=== PATIENT | female | born 1965 | race Caucasian/White ===

== ENCOUNTER 2022-08-16 11:16 | Inpatient (IN) ==
[2022-08-16] MEDS ORDERED: ONDANSETRON INJ 2 MG/ML 2 ML VIAL IV STA (12:24)
[2022-08-16] MEDS ORDERED: SODIUM CHLORIDE 0.9% 1000ML 1,000 ML IV ONE ×2 (12:24→13:40)
--- NOTE | 2022-08-16 12:32 | Emergency Department Note ---
Impression & Plan Dysphagia, DELFIN (acute kidney injury), DKA (diabetic ketoacidosis), Abnormal EKG ED Provider Note NAME: REKHA KIMBROUGH AGE: 57 SEX: F : 1965 ARRIVES VIA: Walk-In INFORMANT: Patient, ED PROVIDER(S): Balwinder Chávez DO CHIEF COMPLAINT: Difficulty swallowing HPI: The patient is a 57-year female who presented to the emergency department for an evaluation of difficulty swallowing. The patient had symptoms for approximate 1 week. The patient states that she is okay swallowing liquids but when she tries to swallow solids she has significant problems. The patient has noticed that her blood sugar has been rising. She is unable to eat. She is able to drink liquids. She has no history of tobacco use. She has no history of an upper endoscopy. She has no history of GERD or reflux. She has had no chest pain or difficulty breathing. She denies have any swelling in her legs. The patient states that she has been compliant with her outpatient medications otherwise. Patient states that she may be dehydrated because of decreased p.o. She also sat in the waiting room at [facility] for 4 hours and left be cause she could not see anybody. This occurred on Sunday. ROS: See above HPI for pertinent positives & negatives. A total of 10 systems reviewed and were otherwise negative. PAST MEDICAL HISTORY: See Below PAST SURGICAL HISTORY: See Below FAMILY HISTORY: See Below SOCIAL HISTORY: See Below HOME MEDICATIONS: See Below ALLERGIES: See Below VITALS: See Below PHYSICAL EXAMINATION: GENERAL: Patient is awake alert in no acute distress patient is resting comfortably and showing no signs of anxiety EYES: The conjunctivae are clear. The pupils are round and reactive. EARS, NOSE, MOUTH AND THROAT: The nose is without any evidence of any deformity. NECK: The neck is nontender and supple. RESPIRATORY: Normal respiratory effort is noted there is no evidence of wheezing rhonchi or rales CARDIOVASCULAR: Regular rate and rhythm noted there no murmurs rubs or gallops normal S1 normal S2. GASTROINTESTINAL: The abdomen is soft. Abdomen is nontender. MUSCULOSKELETAL/EXTREMITIES: There is no evidence of gross deformity full range of motion is noted in the hips and shoulders. SKIN: There is no obvious evidence of any rash. There are no petechiae, pallor or cyanosis noted. NEUROLOGIC: Patient is awake alert and oriented x3 MEDICAL DECISION MAKING: Patient is a 57-year-old female who presented to the emergency department for an evaluation of difficulty swallowing. The patient has a history of diabetes. Because of her difficulty swallowing she has been unable to eat as normally. Her difficulty swallowing appears to be some degree of mechanical difficulty swallowing. I would wonder if the patient requires an upper endoscopy to further evaluate cause of the symptoms. She was treated with IV fluids and IV insulin in the emergency department. If she is in DKA it appears to be quite early. She does have an anion gap but she is not acidotic at this time. Because the patient's presentation and findings I [facility] have agreed to evaluate the patient in the emergency department for further management. Triage Nursing notes reviewed. Prior medical records reviewed Vital Signs: reviewed and remarkable for no significant abnormalities Differential diagnosis: Cardiac ischemia, aortic dissection, pulmonary embolism, pneumothorax, pneumonia, pericarditis, myocarditis, esophageal rupture, GERD, cholecystitis, pancreatitis, musculoskeletal, as well as other pathologies. ER treatment provided: See below Diagnostics interpreted by me: ECG: EKG was obtained in the emergency department. My interpretation is sinus rhythm at 95 bpm. There is no ectopy noted. Inferior and low lateral ST depressions with T wave abnormalities were noted. This was compared to a tracing from July 12, 2021. Ischemic changes are new compared to the previous tracing. Cardiac Monitoring: An order was placed for continuous cardiac monitoring. The monitor shows a rate of 80 bpm with sinus rhythm. Laboratory studies: As stated above and show below. Imaging studies: See below Consultation(s): I discussed case with Veda who [facility] none Past Med/Surg History Medical History (Updated 08/16/22 @ 19:32 by Balwinder Chávez DO) HLD (hyperlipidemia) Hypertension Hypothyroid Insulin dependent diabetes mellitus Social History Smoking Status: Never smoker Second Hand Exposure: Yes ( smokes); Tobacco Cessation Education Requested by Patient: No Hx Alcohol Use: No Hx Substance Use: No Preferred Language: Spanish Communication Ability: Effective Agronomy Professor Required: No Beliefs That Will Affect Care: None Current Living Situation: Spouse Other Information That Helps Us Care for You: No Feels Safe at Home: Yes Safety Concerns: Feels Safe At This Time Assistive Devices: None Allergies Allergies Allergy/AdvReac Type Severity Reaction Status Date / Time No Known Drug Allergies Allergy nkda Verified 08/16/22 15:05 Home Meds Home Medications Medication Instructions Recorded Confirmed atorvastatin 10 mg tablet 10 mg PO DAILY 08/16/22 08/16/22 dulaglutide 0.75 mg/0.5 mL 0.75 mg subcut WE 08/16/22 08/16/22 subcutaneous pen injector (Trulicity) insulin aspart U-100 100 unit/mL 7 unit subcut AC 08/16/22 08/16/22 (3 mL) subcutaneous pen (Novolog Flexpen U-100 Insulin aspart) insulin glargine 100 unit/mL 15 unit subcut DAILY 08/16/22 08/16/22 subcutaneous solution (Lantus U-100 Insulin) levothyroxine 112 mcg tablet 112 mcg PO DAILY 08/16/22 08/16/22 lisinopril 10 mg tablet 10 mg PO DAILY 08/16/22 08/16/22 Results & Data (ED) Vital Signs Vital Signs - 24 hr 08/16/22 11:21 08/16/22 12:06 08/16/22 13:00 Temperature 36.5 C Temperature Source Temporal Artery Scan Pulse Rate 105 H Pulse Rate [Apical] 96 H Pulse Rate from SpO2 Sensor Pulse Rhythm Regular Pulse Strength Normal Respiratory Rate 20 17 Respiratory Effort / Characteristics Non-Labored Spontaneous Respiratory Depth Normal Respiratory Pattern Regular Blood Pressure 126/79 120/77 Blood Pressure [Right Arm] 131/96 Blood Pressure Mean 94 91 Blood Pressure Mean [Right Arm] 107 Blood Pressure Position Sitting Pulse Oximetry 98 100 Oxygen Delivery Method Room Air Room Air Sepsis Recent Fever Within 48 Hours No Sepsis New/Unexplained Change in Mental Status N/A Sepsis Action Taken by Nursing No Action Required 08/16/22 13:00 08/16/22 13:30 08/16/22 13:30 Temperature Temperature Source Pulse Rate 83 84 Pulse Rate [Apical] Pulse Rate from SpO2 Sensor 84 85 Pulse Rhythm Pulse Strength Respiratory Rate 23 19 Respiratory Effort / Characteristics Respiratory Depth Respiratory Pattern Blood Pressure 118/77 Blood Pressure [Right Arm] Blood Pressure Mean 90 Blood Pressure Mean [Right Arm] Blood Pressure Position Pulse Oximetry 99 100 Oxygen Delivery Method Room Air Room Air Sepsis Recent Fever Within 48 Hours Sepsis New/Unexplained Change in Mental Status Sepsis Action Taken by Nursing 08/16/22 14:00 08/16/22 14:00 Temperature Temperature Source Pulse Rate 83 Pulse Rate [Apical] Pulse Rate from SpO2 Sensor 83 Pulse Rhythm Pulse Strength Respiratory Rate 18 Respiratory Effort / Characteristics Respiratory Depth Respiratory Pattern Blood Pressure 115/77 Blood Pressure [Right Arm] Blood Pressure Mean 89 Blood Pressure Mean [Right Arm] Blood Pressure Position Pulse Oximetry 100 Oxygen Delivery Method Room Air Sepsis Recent Fever Within 48 Hours Sepsis New/Unexplained Change in Mental Status Sepsis Action Taken by Skilled Nursing Medications Current Medication List: was personally reviewed by me Laboratory Data Attestation: I reviewed the patient's lab results. Result diagrams: 08/16/22 12:15 08/17/22 07:30 Lab Results 08/16/22 08/16/22 08/16/22 Range/Units 12:15 12:15 12:15 WBC 15.04 H (4.8-10.8) K/ul RBC 5.51 H (3.93-5.22) M/uL Hgb 13.1 (12.0-16.0) g/dl Hct 41.0 (34.1-44.9) % MCV 74.4 L (80.0-100.0) fL MCH 23.8 L (25.0-34.0) pg MCHC 32.0 (32.0-36.0) g/dL RDW Std Deviation 44.0 (36.4-46.3) fL RDW Coeff of Estefany 17.1 H (11.5-14.5) % Plt Count 624 H (130-400) K/uL MPV 8.6 L (9.4-12.3) fL Immature Gran % (Auto) 0.7 % Neut % (Auto) 71.4 % Lymph % (Auto) 19.9 % [place] % (Auto) 6.8 % Eos % (Auto) 0.5 % Baso % (Auto) 0.7 % Neut # (Auto) 10.72 H (1.4-6.5) K/uL Lymph # (Auto) 2.99 (1.2-3.4) K/uL [place] # (Auto) 1.03 H (0.24-0.82) K/uL Eos # (Auto) 0.08 (0-0.50) K/uL Baso # (Auto) 0.11 (0-0.2) K/uL Immature Gran # (Auto) 0.11 H (0.00-0.02) K/uL VBG pH (7.36-7.41) VBG pCO2 (38-50) mmHg VBG pO2 mmHg VBG HCO3 mmol/L VBG O2 Saturation % VBG Base Excess mEq/L Sodium 126 L (136-145) mmol/L Potassium 3.8 (3.5-5.1) mmol/L Chloride 90 L (98-107) mmol/L Carbon Dioxide 16 L (21-32) mmol/L Anion Gap 20 H (3-11) BUN 39 H (6-23) mg/dl Creatinine 1.42 H (0.6-1.2) mg/dl Est Cr Clr Drug Dosing 37.3 ml/min Est GFR ( Amer) 47.1 ml/min Est GFR (Non-Af Amer) 40.6 ml/min BUN/Creatinine Ratio 27.5 H (10-20) Glucose 304 H* (70-99(Fasting)) mg/dl Calcium 9.6 (8.5-10.1) mg/dl Total Bilirubin 0.5 (0.2-1.0) mg/dl AST 44 H (13-39) U/L ALT 23 (7-52) U/L Alkaline Phosphatase 282 H (34-104) U/L Troponin I High Sens 5.2 (0-14) pg/ml Total Protein 8.7 H (6.0-8.3) gm/dl Albumin 4.0 (3.4-5.0) gm/dl Globulin 4.7 H (2.5-4.0) gm/dl Albumin/Globulin Ratio 0.9 (0.9-2) SARS-CoV-2, RNA, NAAT (NEGATIVE) 08/16/22 08/16/22 Range/Units 12:40 12:50 WBC (4.8-10.8) K/ul RBC (3.93-5.22) M/uL Hgb (12.0-16.0) g/dl Hct (34.1-44.9) % MCV (80.0-100.0) fL MCH (25.0-34.0) pg MCHC (32.0-36.0) g/dL RDW Std Deviation (36.4-46.3) fL RDW Coeff of Estefany (11.5-14.5) % Plt Count (130-400) K/uL MPV (9.4-12.3) fL Immature Gran % (Auto) % Neut % (Auto) % Lymph % (Auto) % [place] % (Auto) % Eos % (Auto) % Baso % (Auto) % Neut # (Auto) (1.4-6.5) K/uL Lymph # (Auto) (1.2-3.4) K/uL [place] # (Auto) (0.24-0.82) K/uL Eos # (Auto) (0-0.50) K/uL Baso # (Auto) (0-0.2) K/uL Immature Gran # (Auto) (0.00-0.02) K/uL VBG pH 7.38 (7.36-7.41) VBG pCO2 34 L (38-50) mmHg VBG pO2 24 mmHg VBG HCO3 20 mmol/L VBG O2 Saturation < 60.0 % VBG Base Excess -4.2 mEq/L Sodium (136-145) mmol/L Potassium (3.5-5.1) mmol/L Chloride (98-107) mmol/L Carbon Dioxide (21-32) mmol/L Anion Gap (3-11) BUN (6-23) mg/dl Creatinine (0.6-1.2) mg/dl Est Cr Clr Drug Dosing ml/min Est GFR ( Amer) ml/min Est GFR (Non-Af Amer) ml/min BUN/Creatinine Ratio (10-20) Glucose (70-99(Fasting)) mg/dl Calcium (8.5-10.1) mg/dl Total Bilirubin (0.2-1.0) mg/dl AST (13-39) U/L ALT (7-52) U/L Alkaline Phosphatase (34-104) U/L Troponin I High Sens (0-14) pg/ml Total Protein (6.0-8.3) gm/dl Albumin (3.4-5.0) gm/dl Globulin (2.5-4.0) gm/dl Albumin/Globulin Ratio (0.9-2) SARS-CoV-2, RNA, NAAT NEGATIVE (NEGATIVE) Administered Medications Insulin Aspart (Insulin Aspart Per Unit) 0 units SC ACHS LE Stop: 09/15/22 17:29 Last Admin: 08/17/22 08:41 Dose: Not Given Documented By: [id number] Co-signed By: ANDREA Admin: 08/16/22 21:58 Dose: Not Given Documented By: NIKO Co-signed By: JESÚS Admin: 08/16/22 18:49 Dose: Not Given Documented By: LARRY Discontinued Medications Sodium Chloride (Nss 1000ml) 1,000 mls @ 999 mls/hr IV .Q1H1M ONE Stop: 08/16/22 13:24 Last Infusion: 08/16/22 13:37 Dose: 0 mls/hr Documented By: Admin: 08/16/22 12:36 Dose: 999 mls/hr Documented By: YANDY Sodium Chloride (Nss 1000ml) 1,000 mls @ 999 mls/hr IV .Q1H1M ONE Stop: 08/16/22 14:40 Last Infusion: 08/16/22 15:30 Dose: 0 mls/hr Documented By: Admin: 08/16/22 14:25 Dose: 999 mls/hr Documented By: ERLINDA Lactated Ringer's (Lr) 1,000 mls @ 75 mls/hr IV .[id number] LE Stop: 08/17/22 04:39 Last Infusion: 08/17/22 07:32 Dose: 0 mls/hr Documented By: [id number] Admin: 08/16/22 18:00 Dose: 75 mls/hr Documented By: LARRY Insulin Human Regular (Novolin-R Insulin Per Unit Charge) 6 units IV NOW STA Stop: 08/16/22 13:41 Last Admin: 08/16/22 14:25 Dose: 6 units Documented By: ERLINDA Co-signed By: KENJI Metoclopramide HCl (Metoclopramide Hcl Inj 5 Mg/Ml 2 Ml Vial) 5 mg IV BID LE Stop: 08/17/22 09:01 Last Admin: 08/17/22 08:35 Dose: 5 mg Documented By: [id number] Admin: 08/16/22 20:39 Dose: 5 mg Documented By: NIKO Ondansetron HCl (Ondansetron Inj 2 Mg/Ml 2 Ml Vial) 4 mg IV NOW STA Stop: 08/16/22 12:25 Last Admin: 08/16/22 12:36 Dose: 4 mg Documented By: YANDY Imaging Data Radiologist's Impression: Chest X-Ray 08/16/22 12:24 XR chest 1V portable CLINICAL HISTORY: dysphagia TECHNIQUE: Single frontal radiograph of the chest was obtained. Comparison: None available at the time of this dictation. FINDINGS: No lines and tubes are seen. The cardiomediastinal silhouette is normal. The lungs are clear. No evidence of pleural effusion or pneumothorax. IMPRESSION: No acute chest disease. ACT 112: Negative or not required by law. Electronically signed by: Chang Thomas M.D. 08/16/2022 1:03 PM Discharge Plan Visit Data Chief Complaint: Illness Stated Complaint: UNABLE TO EAT FOR 7 DAYS ED Provider: Balwinder Chávez Discharge Problem: Dysphagia, DELFIN (acute kidney injury), DKA (diabetic ketoacidosis), Abnormal EKG Patient Disposition: Admitted As Inpatient Discharge Instructions Interventions: ED Discharge Assessment Last Done: 08/16/22 15:56 : Dysphagia Qualifiers: Dysphagia type: unspecified Qualified Code(s): R13.10 - Dysphagia, unspecified DKA (diabetic ketoacidosis) Qualifiers: Diabetes mellitus type: type 1 Diabetes mellitus complication detail: without coma Qualified Code(s): E10.10 - Type 1 diabetes mellitus with ketoacidosis without coma
[2022-08-16 12:43] LABS: Basophils # (auto) 0.11 K/uL (0-0.2); Basophils % (auto) 0.7 %; Eosinophils # (auto) 0.08 K/uL (0-0.50); Eosinophils % (auto) 0.5 %; Hemoglobin 13.1 g/dl (12.0-16.0); Immature Granulocytes # (auto) 0.11 K/uL (0.00-0.02); Immature Granulocytes % (auto) 0.7 %; Lymphocytes # (auto) 2.99 K/uL (1.2-3.4); Lymphocytes % (auto) 19.9 %; Mean Corpuscular Hemoglobin 23.8 pg (25.0-34.0); Mean Corpuscular Volume 74.4 fL (80.0-100.0); Mean Platelet Volume 8.6 fL (9.4-12.3); Monocytes # (auto) 1.03 K/uL (0.24-0.82); Monocytes % (auto) 6.8 %; Neutrophils # (auto) 10.72 K/uL (1.4-6.5); Neutrophils % (auto) 71.4 %; Platelet Count 624 K/uL (130-400); RDW Coefficient of Variation 17.1 % (11.5-14.5); Red Blood Count 5.51 M/uL (3.93-5.22); White Blood Count 15.04 K/ul (4.8-10.8)
[2022-08-16 12:50] LABS: Base Excess VBG -4.2 mEq/L; HCO3 VBG 20 mmol/L; Oxygen Saturation VBG < 60.0 %; PCO2 VBG 34 mmHg (38-50); PO2 VBG 24 mmHg; pH VBG 7.38 (7.36-7.41)
--- NOTE | 2022-08-16 13:04 | XRay Report ---
XR chest 1V portable CLINICAL HISTORY: dysphagia TECHNIQUE: Single frontal radiograph of the chest was obtained. Comparison: None available at the time of this dictation. FINDINGS: No lines and tubes are seen. The cardiomediastinal silhouette is normal. The lungs are clear. No evid ence of pleural effusion or pneumothorax. IMPRESSION: No acute chest disease. ACT 112: Negative or not required by law. Electronically signed by: Chang Thomas M.D. 08/16/2022 1:03 PM
[2022-08-16 13:38] LABS: Albumin Globulin Ratio 0.9 (0.9-2); BUN Creatinine Ratio 27.5 (10-20); Bilirubin,Total 0.5 mg/dl (0.2-1.0); Calcium 9.6 mg/dl (8.5-10.1); Creatinine Clr Calc Pharmacy 37.3 ml/min; Est GFR (African American) 47.1 ml/min; Est GFR (Non-African American) 40.6 ml/min; Globulin 4.7 gm/dl (2.5-4.0); Potassium 3.8 mmol/L (3.5-5.1); Total Protein 8.7 gm/dl (6.0-8.3)
[2022-08-16] MEDS ORDERED: NovoLIN-R INSULIN PER UNIT CHARGE IV STA (13:40)
--- NOTE | 2022-08-16 14:08 | History & Physical Report ---
Date of Service August 16, 2022 Assessment & Plan (1) Dysphagia: Plan: - Admit to med surg with tele - Concern for possible food bolus impaction with inability to swallow vs gastroparesis, however denies complaints of nausea or vomiting. - GI consulted - discussed with ALVARADO canceling and cutting control clerk, will make NPO at midnight, and plan for EGD tomorrow morning, give dose of Reglan 5 mg IV BID x 2 doses, no barium swallow at this time - Liver u/s with elevated alk phosphate compared to previous lab work in April - Continue LR at 75ml/hr until tomorrow morning for hydration and DELFIN - WBC 15 k, likely inflammatory, monitor, afebrile, no recent viral sx (2) Insulin dependent diabetes mellitus: Plan: - ISS with Accu-Cheks ACHS - Glucose of 304 on admission, trending BMPs, ABGs - Anion gap of 20, CO2 34 - Last A1c was on 05/05 = 12.70, recheck with am labs - Outpatient regimen includes insulin glargine 15 units daily, NovoLog ACHS, and Trulicity 0.75 mg/week. Has not been on metformin 1000 mg BID for the past 3 months - Consult glycemic pharmacy and community educator - pt has been following with endocrinology as an outpatient and last seen in April 2022 (3) DELFIN (acute kidney injury): Plan: -Creatinine baseline of 0.8-0.9, currently 1.42 on admission -1L NSS received in the ER, continue with fluid resuscitation -BMP check at 1999 (4) Hypertension: Plan: - EKG shows some changes compared to previous, T wave inversions in inferolateral leads, negative troponin, will check x 1 more set with next labwork at 1999. No cardiac complaints, no chest pain or shortness of breath. - Hold lisinopril due to DELFIN with creatinine of 1.4 - Will monitor blood pressure without it (5) Hypothyroid: Plan: - Will check TSH with am labs - Continue levothyroxine 112 mcg daily (6) HLD (hyperlipidemia): Plan: -Continue statin therapy DVT ppx: - teds, scds, ambulatory CODE: Full code - discussed with pt at bedside Dispo: From home, likely to remain in the hospital x 1-2 days History of Present Illness Chief Complaint: Dysphagia, abdominal complaints Primary Care Provider: Daya Martinez MD This is a 57-year-old female with PMHx of DM type II, hypothyroidism, anemia, HTN, oral thrush who presents to the ER for complaints of abdominal pain, nausea, vomiting and difficulty swallowing specifically with solids for several days. She was in the ER at [facility] on 08/14 however left without being seen due to prolonged wait time. Pt notes that approximately 1 week ago she acutely noticed that her swallowing was becoming difficult. She has not been able to tolerate more than liquids and soups with broth, not larger peices of food. The ability to tolerate food has progressed and worsened over the course of the week as well. She feels like her energy level is very low. Pt denies nause or vomiting, just feels like she cant get food down her throat. She admits to loosing a little weight within the ue to inability of not being able to eat. She denies anything like this ever happened before. Denies recent viral illnesses. She has been taking her insulin as directed, Lantus 15 U HS and Novolog from 10-15 U depending on whatever her numbers are. She is not taking metoformin. Novolog 6 units given at bedside in the ER and BG check was 69. [place] juice given at bedside. Allergies Allergy/AdvReac Type Severity Reaction Status Date / Time No Known Drug Allergies Allergy nkda Verified 08/16/22 15:05 Home Medications Medication Instructions Recorded Confirmed Type atorvastatin 10 mg tablet 10 mg PO DAILY 08/16/22 08/16/22 History dulaglutide 0.75 mg/0.5 mL 0.75 mg subcut WE 08/16/22 08/16/22 History subcutaneous pen injector (Trulicity) insulin aspart U-100 100 unit/mL 7 unit subcut AC 08/16/22 08/16/22 History (3 mL) subcutaneous pen (Novolog Flexpen U-100 Insulin aspart) insulin glargine 100 unit/mL 15 unit subcut DAILY 08/16/22 08/16/22 History subcutaneous solution (Lantus U-100 Insulin) levothyroxine 112 mcg tablet 112 mcg PO DAILY 08/16/22 08/16/22 History lisinopril 10 mg tablet 10 mg PO DAILY 08/16/22 08/16/22 History Past Med/Surg History Medical History (Updated 11/02/22 @ 15:26 by Leisa Min PA-C) HLD (hyperlipidemia) Hypertension Hypothyroid Insulin dependent diabetes mellitus Social History Smoking Status: Never smoker Feels Safe at Home: Yes Review of Systems Review of Systems: Constitutional: No fever, sweats or chills, + generalized fatigue Eyes: No diplopia, no worsening or blurred vision ENT: normal hearing, + as per HPI with trouble swallowing Respiratory: No cough, sputum, dyspnea at rest or on exertion Cardiovascular: No chest pain, tightness or palpitations Abdomen: No pain, nausea, vomiting, diarrhea or constipation : no dysuria or hematuria Musculoskeletal: No joint pain, calf pain, swelling Neurologic: No weakness, numbness/tingling, or balance problems Psychiatric: No anxiety or depression Skin: No rash or itch Physical Exam Physical Exam: General: awake, alert, no apparent distress, + thin with BMI of 20.9 Head: Normocephalic, atraumatic ENT: PERRL, EOMI, no pharyngeal exudate, mucous membranes moist Chest: Clear to auscultation, on room air, no adventitious breath sounds Cardiac: Regular rate and rhythm, no murmur, no JVD, normal peripheral pulses, good capillary refill Abdominal: NABS x 4 quadrants, soft, nondistended, nontender to palpation, no rebound or guarding Extremities: Normal inspection, no peripheral edema or erythema, calfs nontender to palpation Psych: Normal mood and affect Neuro: AAO x 3, strength intact bilaterally and rated 5/5, no motor deficits, speech is clear, no peripheral sensory deficits Results & Data Results & Data ([facility]) Vital Signs (Past 12 Hours) Vital Signs Temp Pulse Pulse Resp BP BP Pulse Ox 08/16/22 13:00 83 23 99 08/16/22 13:00 120/77 08/16/22 12:06 96 H 17 131/96 100 08/16/22 11:21 36.5 C 105 H 20 126/79 98 O2 Del Method 08/16/22 13:00 Room Air 08/16/22 13:00 08/16/22 12:06 Room Air 08/16/22 11:21 Room Air Laboratory Results 08/16/22 08/16/22 08/16/22 12:50 12:40 12:15 WBC RBC Hgb Hct MCV MCH MCHC RDW Std Deviation RDW Coeff of Estefany Plt Count MPV Immature Gran % (Auto) Neut % (Auto) Lymph % (Auto) Norton % (Auto) Eos % (Auto) Baso % (Auto) Neut # (Auto) Lymph # (Auto) [place] # (Auto) Eos # (Auto) Baso # (Auto) Immature Gran # (Auto) VBG pH 7.38 VBG pCO2 34 L VBG pO2 24 VBG HCO3 20 VBG O2 Saturation < 60.0 VBG Base Excess -4.2 Sodium Potassium Chloride Carbon Dioxide Anion Gap BUN Creatinine Est Cr Clr Drug Dosing Est GFR ( Amer) Est GFR (Non-Af Amer) BUN/Creatinine Ratio Glucose Calcium Total Bilirubin AST ALT Alkaline Phosphatase Troponin I High Sens 5.2 Total Protein Albumin Globulin Albumin/Globulin Ratio SARS-CoV-2, RNA, NAAT NEGATIVE 08/16/22 08/16/22 12:15 12:15 WBC 15.04 H RBC 5.51 H Hgb 13.1 Hct 41.0 MCV 74.4 L MCH 23.8 L MCHC 32.0 RDW Std Deviation 44.0 RDW Coeff of Estefany 17.1 H Plt Count 624 H MPV 8.6 L Immature Gran % (Auto) 0.7 Neut % (Auto) 71.4 Lymph % (Auto) 19.9 Norton % (Auto) 6.8 Eos % (Auto) 0.5 Baso % (Auto) 0.7 Neut # (Auto) 10.72 H Lymph # (Auto) 2.99 Norton # (Auto) 1.03 H Eos # (Auto) 0.08 Baso # (Auto) 0.11 Immature Gran # (Auto) 0.11 H VBG pH VBG pCO2 VBG pO2 VBG HCO3 VBG O2 Saturation VBG Base Excess Sodium 126 L Potassium 3.8 Chloride 90 L Carbon Dioxide 16 L Anion Gap 20 H BUN 39 H Creatinine 1.42 H Est Cr Clr Drug Dosing 37.3 Est GFR ( Amer) 47.1 Est GFR (Non-Af Amer) 40.6 BUN/Creatinine Ratio 27.5 H Glucose 304 H* Calcium 9.6 Total Bilirubin 0.5 AST 44 H ALT 23 Alkaline Phosphatase 282 H Troponin I High Sens Total Protein 8.7 H Albumin 4.0 Globulin 4.7 H Albumin/Globulin Ratio 0.9 SARS-CoV-2, RNA, NAAT Diagnostic Findings Chest X-Ray 08/16/22 12:24 XR chest 1V portable CLINICAL HISTORY: dysphagia TECHNIQUE: Single frontal radiograph of the chest was obtained. Comparison: None available at the time of this dictation. FINDINGS: No lines and tubes are seen. The cardiomediastinal silhouette is normal. The lungs are clear. No evidence of pleural effusion or pneumothorax. IMPRESSION: No acute chest disease. ACT 112: Negative or not required by law. Electronically signed by: Chang Thomas M.D. 08/16/2022 1:03 PM ECG Additional Comments: 16-AUG-2022 12:16:46 [facility]-EDSTAT ROUTINE RETRIEVAL Sinus rhythm Possible Left atrial enlargement ST & T wave abnormality, consider inferior ischemia ST & T wave abnormality, consider anterolateral ischemia Abnormal ECG No previous ECGs available Confirmed by Thomas Sheridan ([id number]) on 08/16/2022 2:12:40 PM 25mm/s10mm/[id number] 241CID: [id number] by: REFERRED SELF Confirmed By: Thomas Cedillo. rate 95 BPM TN interval 108 ms QRS duration 74 ms QT/QTc 350/439 ms Code Status & VTE Plan Code Status Full code - discussed with pt and i Supervising Physician Co-Signing Physician Notes Patient seen and examined. Agree with above documentation by Leisa Min PA-C. Patient is a 57-year-old female with past medical history of insulin-dependent type 2 diabetes mellitus; diagnosed 5 years ago, hypothyroidism, hypertension, hyperlipidemia presents with 1 week history of dysphagia. Patient reports that she has difficulty swallowing solid which has progressively worsened over the course of the week. She denies any pain on swallowing; is able to swallow liquids well. She denies any fever, chills, nausea, vomiting, abdominal pain or urinary symptoms. Her last bowel movement was in the ED. On presentation to the ED, she was afebrile, normotensive and saturating well in room air. CBC was remarkable for leukocytosis. BMP revealed NAGMA, DELFIN (remote creatinine from 07/05 is 0.9). Her blood glucose was elevated to 300s. On examination; Generalalert oriented x3 CVSS1-S2, no murmur Chestnormal vesicular breath sound Abdomensoft nontender, bowel sound present. Oral cavity examined; no thrush; moist mucous membrane. Neurogrossly intact Assessment/plan Dysphagia: With solids; not with liquids. No history of recent weight loss. We will get GIs input; (barium swallow versus endoscopy) DELFIN-received 1 L of fluid in ED. Continue on LR at 75 cc/h. Hold lisinopril. Follow-up BMP in evening and tomorrow a.m. Elevated ALPobtain right upper quadrant ultrasound Abnormal EKG, she has T wave inversion in inferolateral leads and non ST changes. Her initial troponin is negative.; No chest pain. We will get another troponin. Repeat EKG in AM. Type 2 diabetes mellitusstarted on Lantus and NovoLog. Pharmacy glycemic consult. staff educator. A1c in April was 12.7.
--- NOTE | 2022-08-16 14:12 | Electrocardiogram Report ---
Test Reason : Blood Pressure : / mmHG Vent. Rate : 095 BPM Atrial Rate : 095 BPM P-R Int : 108 ms QRS Dur : 074 ms QT Int : 350 ms P-R-T Axes : 069 060 -78 degrees QTc Int : 439 ms Sinus rhythm Possible Left atrial enlargement Abnormal ECG No previous ECGs available Confirmed by Thomas Sheridan ([id number]) on 08/16/2022 2:12:40 PM Referred By: REFERRED SELF Confirmed By:Ricardo Sheridan
--- NOTE | 2022-08-16 16:28 | Ultrasound Report ---
US liver CLINICAL HISTORY: elevated LFTs, dysphagia COMPARISON STUDY: No previous studies for comparison. FINDINGS: Liver is sonographically normal. There is no biliary ductal dilatation. Common bile duct me asures 4 mm in caliber. There are no gallstones. There is no gallbladder wall thickening. Pancreatic body is normal. Head and tail are partially obscured. There is no right hydronephrosis. Suspected ext rarenal pelvis. IMPRESSION: 1. No significant abnormality within the right upper quadrant by sonography. 2. Partially obscured pancreas. ACT 112: Negative or not required by law. Electronically signed by: Lior Keller M.D. 08/16/2022 4:27 PM
[2022-08-16] MEDS ORDERED: GLUCAGON FOR INJ 1 MG VIAL SQ PRN ×3 (16:40→17:46)
[2022-08-16] MEDS ORDERED: CARBOHYDRATES FOR HYPOGLYCEMIA PO PRN ×3 (16:40→17:46)
[2022-08-16] MEDS ORDERED: DEXTROSE 50% 50 ML SYRINGE IV PRN ×3 (16:40→17:46)
[2022-08-16] MEDS ORDERED: PHARMACY GLYCEMIC MGMT CONSULT PRN ×2 (16:40→17:46)
[2022-08-16] MEDS ORDERED: GLUCOSE 40% GEL 15 GM TUBE PO PRN ×3 (16:40→17:46)
[2022-08-16] MEDS ORDERED: LACTATED RINGER'S 1,000 ML IV SCH (16:40)
[2022-08-16] MEDS ORDERED: GLUCOSE 10 TAB/TUBE PO PRN ×3 (16:40→17:46)
[2022-08-16] MEDS ORDERED: ONDANSETRON INJ 2 MG/ML 2 ML VIAL IV PRN (16:40)
[2022-08-16] MEDS: INSULIN ASPART PER UNIT SC SCH ×2 (18:49→21:58)
[2022-08-16] MEDS: METOCLOPRAMIDE HCL INJ 5 MG/ML 2 ML VIAL IV SCH (20:39)
[2022-08-16] MEDS ORDERED: INSULIN ASPART PER UNIT SC SCH (21:00)
[2022-08-16] MEDS ORDERED: LANTUS PER UNIT CHARGE SQ SCH (21:00)
[2022-08-16 23:49] LABS: Appearance Urine Turbid (Clear); Bacteria Urine Automated 1+ (Negative); Bilirubin Urine Negative (Negative); Blood Urine 3+ (Negative); Color Urine Orange; Epithelial Cell Urine Auto >30 /lpf (0-5); Glucose Urine UA Trace (Negative); Ketones Urine Trace (Negative); Leukocyte Esterase Urine 3+ (Negative); Nitrite Urine Negative (Negative); Protein Urine 3+ (Negative); Specific Gravity Urine 1.016 (1.000-1.030); Urobilinogen Urine Negative (Negative); WBC Urine Automated >30 /hpf (0-5); pH Urine 5.5 (4.5-7.5)
[2022-08-17 00:09] LABS: RBC Urine Automated >30 /hpf (0-4)
[2022-08-17 08:06] LABS: Estimated Average Glucose 344 mg/dl; Hemoglobin A1C 13.6 % (4.5-5.6)
[2022-08-17 08:23] LABS: Albumin Globulin Ratio 0.9 (0.9-2); Albumin Level 3.1 gm/dl (3.4-5.0); Bilirubin,Total 0.6 mg/dl (0.2-1.0); Chol HDL Ratio 4.2 (0-5); Est GFR (African American) 88.8 ml/min; Est GFR (Non-African American) 76.6 ml/min; Globulin 3.4 gm/dl (2.5-4.0); Magnesium 2.2 mg/dl (1.7-2.4); Potassium 3.6 mmol/L (3.5-5.1); Total Protein 6.5 gm/dl (6.0-8.3)
[2022-08-17] MEDS: METOCLOPRAMIDE HCL INJ 5 MG/ML 2 ML VIAL IV SCH (08:35)
[2022-08-17] MEDS: INSULIN ASPART PER UNIT SC SCH ×4 (08:41→21:46)
--- NOTE | 2022-08-17 10:04 | Gastrointestinal Consultation ---
Date of Consultation August 17, 2022 Assessment & Plan (1) Dysphagia: Her symptoms are more typical of an oral pharyngeal dysphagia than esophageal, however there does not seem to be any recent neurological events or other reason why she would have developed oral pharyngeal dysphagia, specific to solid foods. Differentials considered include candidiasis, esophagitis, esophageal dysmotility. Partial food bolus is also considered though less likely. Plan EGD today by Dr. Diaz. Further recommendations to follow. Supervising Physician Co-Signing Physician Notes Attending attestation I have seen, examined this patient, and agree with the findings and above by our mid-level provider TAINA Calix, with the following additions: Solid food odyno and dysphagia Will proceed with EGD Tolerating liquids History of Present Illness Reason for Consultation: dysphagia Requesting Physician: Leisa Min Attending Physician: David Granger MD History of Present Illness Ms. Kam Velez is a 57-year-old female patient who lives in [place]. Her PCP is Dr. Martinez in [facility]. She has a history of DM 2 insulin requiring, hypothyroidism, anemia, hypertension who presented to the ED yesterday reporting difficulty swallowing foods for the past week. She describes this as not being able to transfer solid foods from her mouth into her esophagus. She is interestingly able to drink. She has begun to feel weak and had problems regulating her sugar because she has not been able to eat solids. She does not have regurgitation of foods that she is able to swallow. She does not have any coughing or spewing of food when she tries to swallow. No other signs of illness, no nausea, no diarrhea or constipation, no fevers chills sweats or jaundice. On arrival, US was unremarkable. She has leukocytosis at 15. She was hyponatremic at 126 which has been corrected to 133. She had an anion gap of 20, and had elevated BUN and creatinine which have all normalized. She is awake alert oriented, hemodynamically stable and without any discomfort. Allergies Allergy/AdvReac Type Severity Reaction Status Date / Time No Known Drug Allergies Allergy nkda Verified 08/16/22 15:05 Home Medications Medication Instructions Recorded Confirmed Type atorvastatin 10 mg tablet 10 mg PO DAILY 08/16/22 08/16/22 History dulaglutide 0.75 mg/0.5 mL 0.75 mg subcut WE 08/16/22 08/16/22 History subcutaneous pen injector (Trulicity) insulin aspart U-100 100 unit/mL 7 unit subcut AC 08/16/22 08/16/22 History (3 mL) subcutaneous pen (Novolog Flexpen U-100 Insulin aspart) insulin glargine 100 unit/mL 15 unit subcut DAILY 08/16/22 08/16/22 History subcutaneous solution (Lantus U-100 Insulin) levothyroxine 112 mcg tablet 112 mcg PO DAILY 08/16/22 08/16/22 History lisinopril 10 mg tablet 10 mg PO DAILY 08/16/22 08/16/22 History Patient History Medical History HLD (hyperlipidemia) Hypertension Hypothyroid Insulin dependent diabetes mellitus Social History Smoking Status: Never smoker Second Hand Exposure: Yes ( smokes); Tobacco Cessation Education Requested by Patient: No Hx Alcohol Use: No Hx Substance Use: No Preferred Language: Bhutanese Communication Ability: Effective Brick Cleaner Required: No Beliefs That Will Affect Care: None Current Living Situation: Spouse Other Information That Helps Us Care for You: No Feels Safe at Home: Yes Safety Concerns: Feels Safe At This Time Assistive Devices: None Review of Systems Review of Systems: ROS: Gen: Denies weakness, fevers, weight loss Eyes: No eye redness, or pain, no recent vision changes Resp: No SOB, no cough Cardio: No palpitations/irregular beats, no chest pain GI: As per HPI otherwise negative : Denies pain on urination Skin: No jaundice, itching or new rashes Physical Exam Constitutional: WD/WN, vitals as above Eyes: PERRL, conjunctivae normal, anicteric sclerae ENMT: external ear and nose normal, oropharynx normal Mouth: + dentition abnormality (overall poor dentition but no evidence of red swollen gums or abscess) Neck: trachea midline, no thyromegaly Respiratory: normal respiratory effort, lungs clear to auscultation Cardiovascular: RRR, no murmur, no edema Gastrointestinal (Abdomen): normal bowel sounds, soft, nontender, no hepatosplenomegaly Skin: no rashes, warm and dry Neurologic: PERRL, EOMI, accommodation nl, no face palsy, no dysarthria Psychiatric: A+Ox3, euthymic affect Lymphatic: no cervical or axillary lymphadenopathy Results & Data ([facility]) Vital Signs (Past 12 Hours) Vital Signs Temp Pulse Pulse Resp BP Pulse Ox O2 Del Method 08/17/22 09:20 Room Air 08/17/22 08:07 38.1 C H 89 20 100/66 98 Room Air 08/17/22 07:18 90 08/16/22 22:15 79 08/17/22 03:45 37.1 C 87 18 115/75 96 Room Air 08/16/22 23:05 36.8 C 83 20 105/66 98 Room Air Laboratory Results WBC 15, Hb 13.1, HCT 41, plts 624, BUN 133, K3.6, CL 100, CO2 26, BUN 16, CR 0.84, glucose 72 Diagnostic Findings US 08/16/22: 1. No significant abnormality within the right upper quadrant by sonography. 2. Partially obscured pancreas. (1) Dysphagia Dysphagia type: unspecified Qualified Code(s): R13.10 - Dysphagia, unspecified
--- NOTE | 2022-08-17 10:20 | Anesthesiology Consultation ---
Date of Service August 17, 2022 Assessment & Plan (1) Encounter for pre-operative examination: History Surgery Operation Date: 08/17/22 16:45 Proposed Procedures p Esophagogastroduodenoscopy Dr Diaz - Tomi Diaz MD Height/Weight Height: 5 ft 4 in Weight: 55.2 kg Allergies Allergy/AdvReac Type Severity Reaction Status Date / Time No Known Drug Allergies Allergy nkda Verified 08/16/22 15:05 Medications Home Medications Medication Instructions Recorded Confirmed Last Taken atorvastatin 10 mg tablet 10 mg PO DAILY 08/16/22 08/16/22 08/16/22 09:15 dulaglutide 0.75 mg/0.5 mL 0.75 mg subcut WE 08/16/22 08/16/22 Unknown subcutaneous pen injector (Trulicity) insulin aspart U-100 100 unit/mL 7 unit subcut AC 08/16/22 08/16/22 08/16/22 (3 mL) subcutaneous pen (Novolog Flexpen U-100 Insulin aspart) insulin glargine 100 unit/mL 15 unit subcut DAILY 08/16/22 08/16/22 08/16/22 subcutaneous solution (Lantus U-100 Insulin) levothyroxine 112 mcg tablet 112 mcg PO DAILY 08/16/22 08/16/22 08/16/22 lisinopril 10 mg tablet 10 mg PO DAILY 08/16/22 08/16/22 Unknown Active Medications Generic Name Dose Route Start Last Admin Trade Name Freq PRN Reason Stop Dose Admin Insulin Aspart 0 units 08/16/22 17:30 08/17/22 08:41 Insulin Aspart Per Unit SC 09/15/22 17:29 Not Given ACHS LE NPO Date Last Intake of Fluids: 08/16/22 Time Last Intake of Fluids: 23:30 Date Last Intake of Solids: 08/15/22 Time Last Intake of Solids: 18:00 Past Medical History Medical History HLD (hyperlipidemia) Hypertension Hypothyroid Insulin dependent diabetes mellitus Social History Smoking Status: Never smoker Hx Alcohol Use: No Hx Substance Use: No substance use type: does not use Physical Exam Vital Signs Last Vital Signs Temp 38 C H 08/17/22 10:08 Pulse 96 H 08/17/22 10:08 Resp 18 08/17/22 10:08 BP 126/71 08/17/22 10:08 Pulse Ox 99 08/17/22 10:08 O2 Del Method 08/17/22 10:08 Testing Laboratory Results 08/16/22 12:15 08/17/22 07:30 Hemoglobin A1c 13.6 % (4.5-5.6) H 08/17/22 07:30 Urine Color [place] 08/16/22 23:07 Urine Appearance Turbid (Clear) A 08/16/22 23:07 Urine pH 5.5 (4.5-7.5) 08/16/22 23:07 Ur Specific [place] 1.016 (1.000-1.030) 08/16/22 23:07 Urine Protein 3+ (Negative) H 08/16/22 23:07 Urine Glucose (UA) Trace (Negative) H 08/16/22 23:07 Urine Ketones Trace (Negative) H 08/16/22 23:07 Urine Nitrite Negative (Negative) 08/16/22 23:07 Ur Leukocyte Esterase 3+ (Negative) H 08/16/22 23:07 Urine WBC (Auto) >30 /hpf (0-5) H 08/16/22 23:07 Urine RBC (Auto) >30 /hpf (0-4) H 08/16/22 23:07 U Hyaline Cast (Auto) Not Reportable 08/16/22 23:07 U Epithel Cells (Auto) >30 /lpf (0-5) H 08/16/22 23:07 Urine Bacteria (Auto) 1+ (Negative) H 08/16/22 23:07 08/17/22 08/17/22 07:40 07:40 POC Glucose 72 69 L*
[2022-08-17] MEDS ORDERED: LIDOCAINE 2% MPF LOCAL 5 ML VIAL INFIL ONE (10:53)
[2022-08-17] MEDS ORDERED: MIDAZOLAM HCL 1 MG/ML 2ML VIAL ONE (10:53)
[2022-08-17] MEDS ORDERED: PROPOFOL IV EMULSION 10 MG/ML 20 ML VIAL IV ONE ×2 (10:53→11:14)
[2022-08-17] MEDS ORDERED: ONDANSETRON INJ 2 MG/ML 2 ML VIAL ONE (10:53)
[2022-08-17] MEDS ORDERED: PHENYLEPHRINE 100MCG/ML 5ML SYR ONE (11:14)
--- NOTE | 2022-08-17 11:20 | GI REPORT ---
Patient Name: María Velez Procedure Date: 08/17/2022 10:19 AM Date of : 1965 Admit Type: Inpatient Age: 57 Gender: Female Attending MD: Tomi Diaz MD Procedure: Upper GI endoscopy Providers: Tomi Diaz MD Referring MD: ADILSON HERRERA Indications: Dysphagia Medicines: Monitored Anesthesia Care Complications: No immediate complications. Estimated blood loss: None. Estimated Blood Loss: Estimated blood loss: none. Procedure: Pre-Anesthesia Assessment: - Pre-Anesthesia Assessment: - Prior to the procedure, a History and Physical was performed, and patient medications, allergies and sensitivities were reviewed. The patient's tolerance of previous anesthesia was reviewed. Please see [facility] for complete details. - The risks and benefits of the procedure and the sedation options and risks were discussed with the patient. All questions were answered and informed consent was obtained. - Patient identification and proposed procedure were verified prior to the procedure by the physician and the nurse. The procedure was verified in the pre-procedure area in the procedure room. After obtaining informed consent, the endoscope was passed carefully and meticuously under direct vision and only advanced when the lumen was clearly identified, C02 insuflation was utilized throughout the entirity of the procedure. Throughout the procedure, the patient's blood pressure, pulse, and oxygen saturations were monitored continuously. After obtaining informed consent, the endoscope was passed under direct vision. Throughout the procedure, the patient's blood pressure, pulse, and oxygen saturations were monitored continuously. The Endoscope was introduced through the mouth, and advanced to the second part of duodenum. The upper GI endoscopy was accomplished without difficulty. The patient tolerated the procedure well. Findings: No endoscopic abnormality was evident in the esophagus to explain the patient's complaint of dysphagia. It was decided, however, to proceed with dilation of the entire esophagus. A guidewire was placed and the scope was withdrawn. Dilation was performed with a Savary dilator with no resistance at 12 mm, 13 mm and 14 mm and mild resistance at 15 mm. The dilation site was examined and showed no change. Biopsies were taken with a cold forceps for histology. The entire examined stomach was normal. The examined duodenum was normal. There was some faint rings that could be mild Eosinophillic esophagitis, but no other characteristics and was likely peristalsis. Impression: - No endoscopic esophageal abnormality to explain patient's dysphagia. Esophagus dilated. Dilated. Biopsied. - Normal stomach. - Normal examined duodenum. Recommendation: - Await pathology results. - [facility]. - Advance diet as tolerated - If has continued difficulties can consult speech therapy, but no luminal issues prohibiting swallowing. - Work up fever, elevated alk phosph. - Will sign off, call with questions, can follow up with GI in [place] in 2-4 wks with JAYE. - Use Prilosec (omeprazole) 40 mg PO BID. Tomi Diaz MD 08/17/2022 11:20:12 AM This report has been signed electronically. Note Initiated On: 08/17/2022 10:19 AM Number of Addenda: 0 I attest to the content of the Intraoperative Record and orders documented therein, exceptions below {[id number]}
[2022-08-17] MEDS ORDERED: cefTRIAXone SODIUM 2,000 MG in DEXTROSE 5% 50 ML IV SCH (12:00)
--- NOTE | 2022-08-17 12:43 | Pharmacy Report ---
Pharmacy Glycemic Short Note 2 - Date of Service August 17, 2022 - Glycemic Short BSG Results (Last 24 hours): 08/16/22 08/16/22 08/16/22 12:15 14:48 16:37 Glucose 304 H* POC Glucose 164 H 68 L* 08/16/22 08/16/22 08/17/22 16:38 20:02 07:30 Glucose 69 L POC Glucose 81 111 H 08/17/22 08/17/22 08/17/22 07:40 07:40 12:13 Glucose POC Glucose 69 L* 72 78 OUTPATIENT ANTIDIABETIC REGIMEN: * Trulicity 0.75mg SQ weekly * Lantus 20 units SQ Daily * Novolog 7 units AC * Metformin 1g PO BID - has not been taking past 3 weeks * A1c 13.6% 08/17/22 ASSESSMENT: * 57 yo female admitted with dysphagia, EGD today. * Very uncontrolled type 2 diabetic, hyperglycemic on admission, BSG 304mg/dl -->68mg/dl with 6 units IV regular insulin * Patient took Lantus 15 units prior to admission yesterday morning. * Blood sugars low at this time, no basal on board today for NPO status, resume basal when PO re-initiated. PLAN FOR INPATIENT GLYCEMIC CONTROL: * Hold outpatient diabetes medications * Basal insulin * none at this time, restart when taking PO * Bolus insulin * NovoLog per scale ACHS or Q6hrs while NPO * Goal Range: Low 110 mg/dL - High 140 mg/dL * Correction Factor: 45 mg/dL/unit * Nutritional / Prandial insulin per carb ratio of 1 unit per 15 grams CHO consumed
--- NOTE | 2022-08-17 13:46 | Hospitalist Progress Note ---
Date of Service August 17, 2022 Assessment & Plan (1) Dysphagia: Plan: Doubt about dysphagia since pt said that her issue is whenever she eats that she get nauseated and spitted the food out without trying to swallow She said that she has no problem with swallowing liquid gastro on board S/P EGD showed No endoscopic esophageal abnormality to explain patient's dysphagia. Esophagus dilated. Dilated. Will consult speech for further eval Diet advance to full liquid Will start on PPI BID Continue monitor closely (2) Fever: Plan: Leukocytosis Possible related to UTI WBC 15K on admission UA positive for leukocytes and bacteria Urine cx pending Will start on IV Rocephin Will check blood cx and procalcitonin Continue monitor closely (3) DKA (diabetic ketoacidosis): Plan: Anion gap 20 and glucose 304, +ketone in UA on admission Elevated anion gap could be due to dehydration Received IVF Anion gap 6 today pharmacy on board for glycemic management Continue monitor (4) Insulin dependent diabetes mellitus: Plan: Uncontrolled diabetes Hgba1c 13.6 on 08/17/22 pt has been following with endocrinology as an outpatient and last seen in April 2022 Pharmacy on board for glycemic management Continue lantus and insulin sliding scale fast food fry cook consulted Continue monitor glucose (5) DELFIN (acute kidney injury): Plan: Mostly due to dehydration Creatinine on admission 1.4, Creatinine baseline of 0.8-0.9 received IVF Creatinine 0.8 today Lisinopril on hold Continue monitor BMP (6) Hypertension: Plan: Continue to hold lisinopril due to DELFIN BP stable Continue monitor (7) Hypothyroid: Plan: Continue levothyroxine 112 mcg daily (8) HLD (hyperlipidemia): Plan: -Continue statin therapy DVT ppx: - teds, scds, ambulatory CODE: Full code Disposition Will discharge once medically stable Admission and Anticipated Discharge Date Admission Date: August 16, 2022 Subjective Pt was seen and examined for follow up of dysphagia Lying in bed with no acute distress Pt said that her problem is whenever she takes a bit, she get nauseated and spit the food She said that she does not even try to swallow it She said that she does ok with liquid Denies any chest pain, palpitation,dizziness and SOB Review of Systems Review of Systems: All systems reviewed & are unremarkable except as noted in Subjective Physical Exam Physical Exam: General- No acute distress Head- atraumatic Eyes- PERRL, EOMI, ENT- oropharynx clear Neck- supple, no JVD Lungs- clear to auscultation Heart- regular rhythm; no murmur Abdomen- normal bowel sounds, soft, nontender Extremities- no calf tenderness Neuro- alert, oriented x 3; PERRL, EOMI; no facial palsy; no dysarthria Skin- warm & dry Results & Data Results & Data ([facility]) Vital Signs (Past 12 Hours) Vital Signs Temp Pulse Pulse Resp BP BP Pulse Ox 08/17/22 11:59 90 16 115/63 95 08/17/22 11:35 82 16 98/60 L 96 08/17/22 11:20 80 16 109/67 97 08/17/22 10:08 38 C H 96 H 18 126/71 99 08/17/22 09:20 08/17/22 08:07 38.1 C H 89 20 100/66 98 08/17/22 07:18 90 08/17/22 03:45 37.1 C 87 18 115/75 96 O2 Del Method 08/17/22 11:59 Room Air 08/17/22 11:35 Room Air 08/17/22 11:20 Room Air 08/17/22 10:08 Room Air 08/17/22 09:20 Room Air 08/17/22 08:07 Room Air 08/17/22 07:18 08/17/22 03:45 Room Air (1) DKA (diabetic ketoacidosis) Diabetes mellitus complication detail: without coma Diabetes mellitus type: type 1 Qualified Code(s): E10.10 - Type 1 diabetes mellitus with ketoacidosis without coma (2) Dysphagia Dysphagia type: unspecified Qualified Code(s): R13.10 - Dysphagia, unspecified
--- NOTE | 2022-08-17 15:16 | Anesthesiology Progress Note ---
Date of Service August 17, 2022 Anesthesia Post Procedure Vital Signs Vital Signs: Temp Pulse Pulse Pulse Resp BP BP 08/17/22 15:00 100 H 08/17/22 11:59 90 16 115/63 08/17/22 11:35 82 16 98/60 L 08/17/22 11:20 80 16 109/67 08/17/22 10:08 38 C H 96 H 18 126/71 08/17/22 09:20 08/17/22 08:07 38.1 C H 89 20 100/66 08/17/22 07:18 90 08/16/22 22:15 79 08/17/22 03:45 37.1 C 87 18 115/75 08/16/22 23:05 36.8 C 83 20 105/66 08/16/22 19:30 36.9 C 79 20 111/70 08/16/22 17:07 36.7 C 80 18 113/66 08/16/22 16:53 79 Pulse Ox O2 Del Method 08/17/22 15:00 08/17/22 11:59 95 Room Air 08/17/22 11:35 96 Room Air 08/17/22 11:20 97 Room Air 08/17/22 10:08 99 Room Air 08/17/22 09:20 Room Air 08/17/22 08:07 98 Room Air 08/17/22 07:18 08/16/22 22:15 08/17/22 03:45 96 Room Air 08/16/22 23:05 98 Room Air 08/16/22 19:30 98 Room Air 08/16/22 17:07 100 Room Air 08/16/22 16:53 Transfer of Care Handoff Completed per policy Notes Mental Status: alert / awake / arousable and participated in evaluation Patient Amnestic to Procedure: Yes Nausea / Vomiting: adequately controlled Pain: adequately controlled Airway Patency, RR, SpO2: stable & adequate BP & HR: stable & adequate Hydration State: stable & adequate Anesthetic Complications: no major complications apparent
[2022-08-17] MEDS ORDERED: Nursing to Pharmacy Communication SCH (17:00)
[2022-08-17] MEDS ORDERED: INSULIN ASPART PER UNIT SC SCH (18:00)
[2022-08-17] MEDS ORDERED: LANTUS PER UNIT CHARGE SQ ONE (19:30)
[2022-08-17 20:29] LABS: BUN Creatinine Ratio 11.3 (10-20); Calcium 7.7 mg/dl (8.5-10.1); Est GFR (Non-African American) 57.8 ml/min; Potassium 3.9 mmol/L (3.5-5.1)
[2022-08-17] MEDS ORDERED: ACETAMINOPHEN 325 MG TAB PO PRN (22:43)
[2022-08-17] MEDS ORDERED: ACETAMINOPHEN 325 MG TAB PO STA (22:43)
[2022-08-17] MEDS ORDERED: SODIUM CHLORIDE 0.9% 1000ML 1,000 ML IV ONE (22:43)
[2022-08-18] MEDS ORDERED: CEFEPIME 1,000 MG in SYRINGE 0 ML IV SCH (00:15)
[2022-08-18] MEDS ORDERED: INSULIN ASPART PER UNIT SC ONE (02:00)
--- NOTE | 2022-08-18 06:28 | Communication Note ---
Date of Service: August 18, 2022 Late entry Patient noted to be febrile last night. AP Fever Complicated UTI, ongoing ceftriaxone Rx Change ceftriaxone to cefepime for broader coverage History Pseudomonas UTI on outpatient urine CS 2020
[2022-08-18] MEDS: PANTOprazole 40 MG TAB PO SCH ×2 (09:15→20:41)
[2022-08-18] MEDS: INSULIN ASPART PER UNIT SC SCH ×3 (09:20→17:48)
[2022-08-18 09:33] LABS: Albumin Globulin Ratio 0.8 (0.9-2); Albumin Level 2.7 gm/dl (3.4-5.0); BUN Creatinine Ratio 11.1 (10-20); Bilirubin,Total 0.3 mg/dl (0.2-1.0); Calcium 7.5 mg/dl (8.5-10.1); Creatinine Clr Calc Pharmacy 58.8 ml/min; Est GFR (African American) 81.7 ml/min; Est GFR (Non-African American) 70.5 ml/min; Globulin 3.2 gm/dl (2.5-4.0); Potassium 3.6 mmol/L (3.5-5.1); Total Protein 5.9 gm/dl (6.0-8.3)
[2022-08-18 09:45] LABS: Hematocrit (blood only) 33.8 % (34.1-44.9); Hemoglobin 10.5 g/dl (12.0-16.0); Mean Corpuscular Hemoglobin 23.8 pg (25.0-34.0); Mean Corpuscular Hgb Conc 31.1 g/dL (32.0-36.0); Mean Corpuscular Volume 76.5 fL (80.0-100.0); Mean Platelet Volume 8.4 fL (9.4-12.3); Platelet Count 360 K/uL (130-400); RDW Coefficient of Variation 16.9 % (11.5-14.5); RDW Standard Deviation 47.3 fL (36.4-46.3); Red Blood Count 4.42 M/uL (3.93-5.22); White Blood Count 8.52 K/ul (4.8-10.8)
--- NOTE | 2022-08-18 09:45 | Pharmacy Report ---
Pharmacy Glycemic Short Note 2 - Date of Service August 18, 2022 - Glycemic Short BSG Results (Last 24 hours): 08/17/22 08/17/22 08/17/22 10:23 12:13 16:46 Glucose POC Glucose 87 78 324 H* 08/17/22 08/17/22 08/17/22 16:47 19:46 19:57 Glucose 208 H POC Glucose 350 H* 177 H 08/18/22 08/18/22 08/18/22 02:16 02:18 02:56 Glucose POC Glucose 49 L* 49 L* 80 08/18/22 08/18/22 08/18/22 05:13 07:42 08:53 Glucose 272 H POC Glucose 166 H 187 H OUTPATIENT ANTIDIABETIC REGIMEN: * Trulicity 0.75mg SQ weekly * Lantus 20 units SQ Daily * Novolog 7 units AC * Metformin 1g PO BID - has not been taking past 3 weeks * A1c 13.6% 08/17/22 ASSESSMENT: 08/18/22: * Patient received total 17 units of insulin yesterday: 10 units basal + 7 units bolus * BSGs yesterday were 16-16-311-177 mg/dl. Fasting BSG today was 166 mg/dl. * Patient was transitioned to a full liquid diet yesterday but her oral intake at lunch was not documented and she received no insulin all day until she was high at dinner time. After she received 6 units of Novolog at dinner, BSG trended down to 177 at HS. She then received 10 units of Lantus. * BSG trended down to 49 mg/dl ~2 AM. This most likely was caused by the basal dose of 10 units at HS. * Basal dose reduced by 50% for tonight. * Since post-prandial BSGs were elevated later yesterday, Novolog parameters tightened slightly but loosened at HS. 08/17/22: * 57 yo female admitted with dysphagia, EGD today. * Very uncontrolled type 2 diabetic, hyperglycemic on admission, BSG 304mg/dl -->68mg/dl with 6 units IV regular insulin * Patient took Lantus 15 units prior to admission yesterday morning. * Blood sugars low at this time, no basal on board today for NPO status, resume basal when PO re-initiated. PLAN FOR INPATIENT GLYCEMIC CONTROL: * Hold outpatient diabetes medications * Basal insulin * Lantus 5 units SQ HS * Bolus insulin * NovoLog per scale ACHS or Q6hrs while NPO; added check at 0200 * Goal Range: Low 110 mg/dL - High 140 mg/dL * Correction Factor: 35 mg/dL/unit with breakfast, lunch and dinner; 45 mg/dl/unit at HS * Nutritional / Prandial insulin per carb ratio of 1 unit per 11 grams CHO consumed at breakfast, lunch and dinner; none at HS
[2022-08-18] MEDS: CEFEPIME 2,000 MG in SYRINGE 0 ML IV SCH (12:41)
--- NOTE | 2022-08-18 15:09 | Hospitalist Progress Note ---
Date of Service August 18, 2022 Assessment & Plan (1) Dysphagia: Plan: Doubt about dysphagia since pt said that her issue is whenever she eats that she get nauseated and spitted the food out without trying to swallow She said that she has no problem with swallowing liquid gastro on board S/P EGD showed No endoscopic esophageal abnormality to explain patient's dysphagia. Esophagus dilated. Dilated. Will consult speech for further eval Diet advance to full liquid Will start on PPI BID Continue monitor closely (2) Fever: Plan: Leukocytosis Possible related to UTI WBC 15K on admission, WBC normalized UA positive for leukocytes and bacteria Urine cx and blood cx pending IV Rocephin changed to cefepime last night Continue monitor closely (3) DKA (diabetic ketoacidosis): Plan: Anion gap 20 and glucose 304, +ketone in UA on admission Elevated anion gap could be due to dehydration Received IVF Anion gap 6 today pharmacy on board for glycemic management Continue monitor (4) Insulin dependent diabetes mellitus: Plan: Uncontrolled diabetes Hgba1c 13.6 on 08/17/22 pt has been following with endocrinology as an outpatient and last seen in April 2022 Pharmacy on board for glycemic management Continue lantus and insulin sliding scale cosmetology educator consulted Continue monitor glucose (5) DELFIN (acute kidney injury): Plan: Mostly due to dehydration Creatinine on admission 1.4, Creatinine baseline of 0.8-0.9 received IVF Creatinine 0.8 today Lisinopril on hold Continue monitor BMP (6) Hypertension: Plan: Continue to hold lisinopril due to DELFIN BP stable Continue monitor (7) Hypothyroid: Plan: TSH 21.9 Consider to increase levothyroxine Will to check TSH in 4 to 6 weeks (8) HLD (hyperlipidemia): Plan: -Continue statin therapy DVT ppx: - teds, scds, ambulatory CODE: Full code Disposition Will discharge once medically stable Admission and Anticipated Discharge Date Admission Date: August 16, 2022 Subjective Pt was seen and examined for follow up of dysphagia Lying in bed with no acute distress Pt said that she feels much better She said that she was able to tolerate her diet She was able to swallow with no issue She was febrile last night Denies any chest pain, palpitation,dizziness and SOB Review of Systems Review of Systems: All systems reviewed & are unremarkable except as noted in Subjective Physical Exam Physical Exam: General- No acute distress Head- atraumatic Eyes- PERRL, EOMI, ENT- oropharynx clear Neck- supple, no JVD Lungs- clear to auscultation Heart- regular rhythm; no murmur Abdomen- normal bowel sounds, soft, nontender Extremities- no calf tenderness Neuro- alert, oriented x 3; PERRL, EOMI; no facial palsy; no dysarthria Skin- warm & dry Results & Data Results & Data ([facility]) Vital Signs (Past 12 Hours) Vital Signs Temp Pulse Pulse Pulse Resp BP Pulse Ox 08/18/22 11:10 36.8 C 86 84 18 98/62 L 98 08/18/22 07:58 83 08/18/22 07:35 37.0 C 96 H 19 98/72 L 99 08/18/22 04:04 37 C 79 18 100/61 99 O2 Del Method 08/18/22 11:10 Room Air 08/18/22 07:58 08/18/22 07:35 Room Air 08/18/22 04:04 Room Air (1) Dysphagia Dysphagia type: unspecified Qualified Code(s): R13.10 - Dysphagia, unspecified (2) DKA (diabetic ketoacidosis) Diabetes mellitus complication detail: without coma Diabetes mellitus type: type 1 Qualified Code(s): E10.10 - Type 1 diabetes mellitus with ketoacidosis without coma
[2022-08-18] MEDS ORDERED: INSULIN ASPART PER UNIT SC SCH (21:00)
[2022-08-18] MEDS ORDERED: LANTUS PER UNIT CHARGE SQ SCH (21:00)
[2022-08-19] MEDS: CEFEPIME 2,000 MG in SYRINGE 0 ML IV SCH ×2 (01:10→13:30)
[2022-08-19] MEDS ORDERED: INSULIN ASPART PER UNIT SC SCH (02:00)
[2022-08-19 07:05] LABS: Hematocrit (blood only) 30.9 % (34.1-44.9); Hemoglobin 9.7 g/dl (12.0-16.0); Mean Corpuscular Hemoglobin 23.7 pg (25.0-34.0); Mean Corpuscular Hgb Conc 31.4 g/dL (32.0-36.0); Mean Corpuscular Volume 75.4 fL (80.0-100.0); Mean Platelet Volume 8.4 fL (9.4-12.3); Platelet Count 309 K/uL (130-400); RDW Coefficient of Variation 17.1 % (11.5-14.5); RDW Standard Deviation 46.5 fL (36.4-46.3); White Blood Count 6.95 K/ul (4.8-10.8)
[2022-08-19 07:29] LABS: BUN Creatinine Ratio 11.8 (10-20); Calcium 7.5 mg/dl (8.5-10.1); Creatinine Clr Calc Pharmacy 69.7 ml/min; Est GFR (African American) 100.2 ml/min; Est GFR (Non-African American) 86.5 ml/min; Potassium 3.7 mmol/L (3.5-5.1)
[2022-08-19] MEDS: PANTOprazole 40 MG TAB PO SCH (08:30)
[2022-08-19] MEDS: INSULIN ASPART PER UNIT SC SCH ×2 (08:37→13:29)
[2022-08-19] MEDS ORDERED: bisacodyL 5 MG TABEC PO ONE (12:20)
[2022-08-19 13:28] LABS: Ferritin 26.6 ng/ml (8-388)
[2022-08-19 13:52] LABS: Iron < 10 mcg/dl (35-150); Transferrin 238 mg/dl (200-360)
--- NOTE | 2022-08-19 14:35 | Discharge Summary ---
Date of Service August 19, 2022 Admission HPI Per Admitting Provider This is a 57-year-old female with PMHx of DM type II, hypothyroidism, anemia, HTN, oral thrush who presents to the ER for complaints of abdominal pain, nausea, vomiting and difficulty swallowing specifically with solids for several days. She was in the ER at [facility] on 08/14 however left without being seen due to prolonged wait time. Pt notes that approximately 1 week ago she acutely noticed that her swallowing was becoming difficult. She has not been able to tolerate more than liquids and soups with broth, not larger peices of food. The ability to tolerate food has progressed and worsened over the course of the week as well. She feels like her energy level is very low. Pt denies nause or vomiting, just feels like she cant get food down her throat. She admits to loosing a little weight within the ue to inability of not being able to eat. She denies anything like this ever happened before. Denies recent viral illnesses. She has been taking her insulin as directed, Lantus 15 U HS and Novolog from 10-15 U depending on whatever her numbers are. She is not taking metoformin. Novolog 6 units given at bedside in the ER and BG check was 69. [place] juice given at bedside. Admission Exam Per Admitting Provider General: awake, alert, no apparent distress, + thin with BMI of 20.9 Head: Normocephalic, atraumatic ENT: PERRL, EOMI, no pharyngeal exudate, mucous membranes moist Chest: Clear to auscultation, on room air, no adventitious breath sounds Cardiac: Regular rate and rhythm, no murmur, no JVD, normal peripheral pulses, good capillary refill Abdominal: NABS x 4 quadrants, soft, nondistended, nontender to palpation, no rebound or guarding Extremities: Normal inspection, no peripheral edema or erythema, calfs nontender to palpation Psych: Normal mood and affect Neuro: AAO x 3, strength intact bilaterally and rated 5/5, no motor deficits, speech is clear, no peripheral sensory deficits Principal Diagnosis Dysphagia: Fever: DKA (diabetic ketoacidosis): Insulin dependent diabetes mellitus: DELFIN (acute kidney injury): Hypertension: Hypothyroid: HLD (hyperlipidemia): Discharge Exam General- No acute distress Head- atraumatic Eyes- PERRL, EOMI, ENT- oropharynx clear Neck- supple, no JVD Lungs- clear to auscultation Heart- regular rhythm; no murmur Abdomen- normal bowel sounds, soft, nontender Extremities- no calf tenderness Neuro- alert, oriented x 3; PERRL, EOMI; no facial palsy; no dysarthria Skin- warm & dry Discharge Data Allergies Allergy/AdvReac Type Severity Reaction Status Date / Time No Known Drug Allergies Allergy nkda Verified 08/16/22 15:05 Consultations 08/16/22 13:59 ED Decision to Admit Stat 08/16/22 16:40 Consult Gastroenterology Routine Procedures Performed Operation Date: 08/17/22 16:45 Actual Procedures p EGD Biopsy Dilatation - Tomi Diaz MD Ordered Studies 08/16/22 14:57 liver Routine Laboratory Results WBC 6.95 K/ul (4.8-10.8) 08/19/22 06:38 RBC 4.10 M/uL (3.93-5.22) 08/19/22 06:38 Hgb 9.7 g/dl (12.0-16.0) L 08/19/22 06:38 Hct 30.9 % (34.1-44.9) L 08/19/22 06:38 MCV 75.4 fL (80.0-100.0) L 08/19/22 06:38 MCH 23.7 pg (25.0-34.0) L 08/19/22 06:38 MCHC 31.4 g/dL (32.0-36.0) L 08/19/22 06:38 RDW Std Deviation 46.5 fL (36.4-46.3) H 08/19/22 06:38 RDW Coeff of Estefany 17.1 % (11.5-14.5) H 08/19/22 06:38 Plt Count 309 K/uL (130-400) 08/19/22 06:38 MPV 8.4 fL (9.4-12.3) L 08/19/22 06:38 Immature Gran % (Auto) 0.7 % 08/16/22 12:15 Neut % (Auto) 71.4 % 08/16/22 12:15 Lymph % (Auto) 19.9 % 08/16/22 12:15 [place] % (Auto) 6.8 % 08/16/22 12:15 Eos % (Auto) 0.5 % 08/16/22 12:15 Baso % (Auto) 0.7 % 08/16/22 12:15 Neut # (Auto) 10.72 K/uL (1.4-6.5) H 08/16/22 12:15 Lymph # (Auto) 2.99 K/uL (1.2-3.4) 08/16/22 12:15 [place] # (Auto) 1.03 K/uL (0.24-0.82) H 08/16/22 12:15 Eos # (Auto) 0.08 K/uL (0-0.50) 08/16/22 12:15 Baso # (Auto) 0.11 K/uL (0-0.2) 08/16/22 12:15 Immature Gran # (Auto) 0.11 K/uL (0.00-0.02) H 08/16/22 12:15 VBG pH 7.38 (7.36-7.41) 08/16/22 12:40 VBG pCO2 34 mmHg (38-50) L 08/16/22 12:40 VBG pO2 24 mmHg 08/16/22 12:40 VBG HCO3 20 mmol/L 08/16/22 12:40 VBG O2 Saturation < 60.0 % 08/16/22 12:40 VBG Base Excess -4.2 mEq/L 08/16/22 12:40 Sodium 133 mmol/L (136-145) L 08/19/22 06:38 Potassium 3.7 mmol/L (3.5-5.1) 08/19/22 06:38 Chloride 101 mmol/L (98-107) 08/19/22 06:38 Carbon Dioxide 28 mmol/L (21-32) 08/19/22 06:38 Anion Gap 4 (3-11) 08/19/22 06:38 BUN 9 mg/dl (6-23) 08/19/22 06:38 Creatinine 0.76 mg/dl (0.6-1.2) 08/19/22 06:38 Est Cr Clr Drug Dosing 69.7 ml/min 08/19/22 06:38 Est GFR ( Amer) 100.2 ml/min 08/19/22 06:38 Est GFR (Non-Af Amer) 86.5 ml/min 08/19/22 06:38 BUN/Creatinine Ratio 11.8 (10-20) 08/19/22 06:38 Glucose 103 mg/dl (70-99(Fasting)) H 08/19/22 06:38 POC Glucose 296 mg/dl (70-99) H 08/19/22 11:33 Estimat Average Glucose 344 mg/dl 08/17/22 07:30 Hemoglobin A1c 13.6 % (4.5-5.6) H 08/17/22 07:30 Calcium 7.5 mg/dl (8.5-10.1) L 08/19/22 06:38 Magnesium 2.2 mg/dl (1.7-2.4) 08/17/22 07:30 Iron < 10 mcg/dl (35-150) L 08/19/22 12:12 Transferrin 238 mg/dl (200-360) 08/19/22 12:12 Ferritin 26.6 ng/ml (8-388) 08/19/22 12:12 Total Bilirubin 0.3 mg/dl (0.2-1.0) 08/18/22 08:53 AST 36 U/L (13-39) 08/18/22 08:53 ALT 17 U/L (7-52) 08/18/22 08:53 Alkaline Phosphatase 170 U/L (34-104) H 08/18/22 08:53 Troponin I High Sens 4.7 pg/ml (0-14) 08/16/22 20:02 Total Protein 5.9 gm/dl (6.0-8.3) L 08/18/22 08:53 Albumin 2.7 gm/dl (3.4-5.0) L 08/18/22 08:53 Globulin 3.2 gm/dl (2.5-4.0) 08/18/22 08:53 Albumin/Globulin Ratio 0.8 (0.9-2) L 08/18/22 08:53 Triglycerides 335 mg/dl (0-150) H 08/17/22 07:30 Cholesterol 201 mg/dl (0-200) H 08/17/22 07:30 LDL Cholesterol, Calc 86 mg/dl 08/17/22 07:30 VLDL Cholesterol, Calc 67 mg/dl (0-30) H 08/17/22 07:30 HDL Cholesterol 48 mg/dl 08/17/22 07:30 Cholesterol/HDL Ratio 4.2 (0-5) 08/17/22 07:30 TSH 21.940 uIu/ml (0.300-4.500) H 08/18/22 08:53 Urine Color [place] 08/16/22 23:07 Urine Appearance Turbid (Clear) A 08/16/22 23:07 Urine pH 5.5 (4.5-7.5) 08/16/22 23:07 Ur Specific [place] 1.016 (1.000-1.030) 08/16/22 23:07 Urine Protein 3+ (Negative) H 08/16/22 23:07 Urine Glucose (UA) Trace (Negative) H 08/16/22 23:07 Urine Ketones Trace (Negative) H 08/16/22 23:07 Urine Blood 3+ (Negative) H 08/16/22 23:07 Urine Nitrite Negative (Negative) 08/16/22 23:07 Urine Bilirubin Negative (Negative) 08/16/22 23:07 Urine Urobilinogen Negative (Negative) 08/16/22 23:07 Ur Leukocyte Esterase 3+ (Negative) H 08/16/22 23:07 Urine WBC (Auto) >30 /hpf (0-5) H 08/16/22 23:07 Urine RBC (Auto) >30 /hpf (0-4) H 08/16/22 23:07 U Hyaline Cast (Auto) Not Reportable 08/16/22 23:07 U Epithel Cells (Auto) >30 /lpf (0-5) H 08/16/22 23:07 Urine Bacteria (Auto) 1+ (Negative) H 08/16/22 23:07 Urine Yeast Budding (None Prsent) A 08/16/22 23:07 SARS-CoV-2, RNA, NAAT NEGATIVE (NEGATIVE) 08/16/22 12:50 Impressions Chest X-Ray 08/16/22 12:24 XR chest 1V portable CLINICAL HISTORY: dysphagia TECHNIQUE: Single frontal radiograph of the chest was obtained. Comparison: None available at the time of this dictation. FINDINGS: No lines and tubes are seen. The cardiomediastinal silhouette is normal. The lungs are clear. No evidence of pleural effusion or pneumothorax. IMPRESSION: No acute chest disease. ACT 112: Negative or not required by law. Electronically signed by: Chang Thomas M.D. 08/16/2022 1:03 PM Liver Ultrasound 08/16/22 14:57 US liver CLINICAL HISTORY: elevated LFTs, dysphagia COMPARISON STUDY: No previous studies for comparison. FINDINGS: Liver is sonographically normal. There is no biliary ductal dilatation. Common bile duct measures 4 mm in caliber. There are no gallstones. There is no gallbladder wall thickening. Pancreatic body is normal. Head and tail are partially obscured. There is no right hydronephrosis. Suspected extrarenal pelvis. IMPRESSION: 1. No significant abnormality within the right upper quadrant by sonography. 2. Partially obscured pancreas. ACT 112: Negative or not required by law. Electronically signed by: Lior Keller M.D. 08/16/2022 4:27 PM Diabetes Follow up Diabetes Follow-up Needed for HgbA1c >9% Hospital Course (1) Dysphagia: Doubt about dysphagia since pt said that her issue is whenever she eats that she get nauseated and spitted the food out without trying to swallow She said that she has no problem with swallowing liquid gastro on board S/P EGD showed No endoscopic esophageal abnormality to explain patient's dysphagia. Esophagus dilated. Dilated. Will consult speech for further eval Tolerated diet Continue PPI BID x 4 weeks, then daily Resolved (2) Fever: Leukocytosis Possible related to UTI WBC 15K on admission, WBC normalized UA positive for leukocytes and bacteria Urine cx and blood cx no growth IV Rocephin changed to cefepime last night Abx discontinued (3) DKA (diabetic ketoacidosis): Anion gap 20 and glucose 304, +ketone in UA on admission Elevated anion gap could be due to dehydration Received IVF Anion gap closed pharmacy on board for glycemic management Due to hypoglycemic episode, will decreased basaglar to 10 units Pt was advised to continue monitor BS and if BS starts to elevating above 200 to increase basaglar to 15 units and notify her provider (4) Insulin dependent diabetes mellitus: Uncontrolled diabetes Hgba1c 13.6 on 08/17/22 pt has been following with endocrinology as an outpatient and last seen in April 2022 Pharmacy on board for glycemic management Continue lantus and insulin sliding scale diabetes educator consulted Due to hypoglycemic episode, will decreased basaglar to 10 units Pt was advised to continue monitor BS and if BS starts to elevating above 200 to increase basaglar to 15 units and notify her provider (5) DELFIN (acute kidney injury): Mostly due to dehydration Creatinine on admission 1.4, Creatinine baseline of 0.8-0.9 received IVF Creatinine 0.8 today Lisinopril resumed on discharge Continue monitor BMP (6) Hypertension: lisinopril was on hold due to DELFIN resumed on discharge BP stable (7) Hypothyroid: TSH 21.9 Levothyroxine increased to 137mcg Will to check TSH in 4 to 6 weeks (8) HLD (hyperlipidemia): Continue statin therapy Anemia last colonoscopy showed portion of the terminal ileum appeared normal. The ex amined colon appeared normal. S/P EGD during this admission showed No endoscopic esophageal abnormality to explain patient's dysphagia. Esophagus dilated. Dilated. Starting on iron supplement Check cbc in 1 week to monitor hgb DVT ppx: - teds, scds, ambulatory CODE: Full code Disposition Plan to discharge home today Total Time Total Time Spent Total Time Spent (In Minutes): 35 minutes Discharge Plan Discharge Items Patient Disposition: Home - Self-Care Reason For Visit: DYSPHAGIA Discharge Diagnosis: Dysphagia: Fever: DKA (diabetic ketoacidosis): Insulin dependent diabetes mellitus: DELFIN (acute kidney injury): Hypertension: Hypothyroid: HLD (hyperlipidemia): Activity: Resume your previous activity Non-emergency contact: Primary Care Provider and Specialist Call non-emergency contact if: you have any medication questions, your symptoms worsen and your temperature is above 101 Follow-up/Referrals: Daya Martinez MD [Primary Care Provider] - Diet: Carb Consistent or DM2 Addtl Attending Provider Instructions: Follow up with your primary care provider within 1 week ( please call to schedule for the appointment) Follow up with endocrinology to continue managing your diabetes Continue monitor your blood sugar and bring your blood sugar log at your next follow up appointment with your provider Continue follow a healthy diabetes diet and limited concentrated sweet intake Due to the episodes of low blood sugar during the admission, your lantus decreased to 10 units. If blood sugar starts increasing above 200's please notify your provider or boat washer to adjust your Lantus insulin to ~15 units Levothyroxine increased to 137 mcg. (Please check TSH in 4 to 6 weeks ) Continue iron supplement Continue pantoprazole 40mg twice a day for 4 weeks, then daily Seek medical attention if your symptoms reoccurs or you develop any fever Pending Studies at Discharge: No Stand-Alone Forms: My [facility] [address], Smoking Cessation Medications and DC Order Prescriptions: New levothyroxine 137 mcg capsule 137 mcg PO DAILY Qty: 30 0RF pantoprazole 40 mg Tablet,Delayed Release (Dr/Ec) 40 mg PO BID Qty: 60 0RF ferrous sulfate [Iron (ferrous sulfate)] 325 mg (65 mg iron) tablet 325 mg PO DAILY Qty: 30 0RF Continued atorvastatin 10 mg Tablet 10 mg PO DAILY lisinopril 10 mg Tablet 10 mg PO DAILY insulin aspart U-100 [Novolog Flexpen U-100 Insulin] 100 unit/mL (3 mL) Insulin Pen 7 unit SUBCUT AC Rx Instructions: sliding scale Trulicity 0.75 mg/0.5 mL Pen Injector 0.75 mg SUBCUT WE aspirin 81 mg 81 mg PO DAILY Changed Basaglar KwikPen U-100 Insulin 10 unit SC DAILY Qty: 1 0RF Discontinued levothyroxine 112 mcg tablet 125 mcg PO DAILY iron 325 mg 325 mg PO DAILY Discharge Orders: Discharge Order (Routine); Ordered 08/19/22 Ordered By: David Granger Admission Data Admit Date/Time: 08/16/22 14:13 Attending Provider: David Granger Admit Provider: Merritt Boykin Primary Care Provider: Daya Martinez Other Providers: Merritt Boykin ; Tomi Diaz Other Interventions: Discharge Summary Assessment (RN) Last Done: 08/19/22 16:04
[2022-08-19] MEDS ORDERED: LANTUS PER UNIT CHARGE SQ SCH (21:00)
== END 2022-08-19 17:28 | disposition home or self-care (01) | DRG 391 ==
LOC: ED 11:16 → SUATTDRO 14:13 → 2N 14:13